=== PATIENT | female | born 1985 | race Caucasian/White ===

== ENCOUNTER → 2016-10-04 | Outpatient (CLI) | payer BC ==
[~2016-10-04] MED LIST: MOTRIN800 MG PO; PERCOCET 5-3251 EACH PO; PRENATAL 1+1)(P1 TAB PO; TUMS200 MG PO
== END | disposition disaster alternative care site (69) ==
LOC: GRAD 10:10
DX: R30.0 Dysuria (principal); N20.0 Calculus of kidney; R35.0 Frequency of micturition; R10.30 Lower abdominal pain, unspecified